=== PATIENT | female | born 1980 ===

== ENCOUNTER 2024-05-21 13:25 | Inpatient (IN) | payer OTHER ==
[2024-05-21] MEDS: ELECTROLYTE-148 SOLN 1,000 ML IV SCH (13:45)
[2024-05-21] MEDS: AMPICILLIN - 2 GM in SODIUM CHLORIDE 100 ML IVPB ONE (13:50)
[2024-05-21] MEDS ORDERED: OXYTOCIN 20 UNITS in 0.9% NS 20 UNIT/1,000 ML INFUS.BAG IV ONE ×2 (14:43→17:00)
[2024-05-21 14:53] VITALS: BMI 40.6
[2024-05-21] MEDS: OXYTOCIN 20 UNITS in 0.9% NS 20 UNIT/1,000 ML INFUS.BAG IV SCH (15:30)
[2024-05-21] MEDS ORDERED: oxyCODONE HCL 5 MG TABLET ONE (15:33)
[2024-05-21] MEDS: oxyCODONE HCL 5 MG TABLET PO PRN (15:35)
[2024-05-21 15:39] LABS: BASO % 0.6 % (0-2.0); HEMOGLOBIN 12.4 GM/dL (10.7-15.3); LYMPH % 9.2 % (8-40); MCH 22.6 pg (25.7-33.7); MCHC 30.9 g/dl (32.0-36.0); MEAN CELL VOLUME 73.2 fl (80-96); MEAN PLT VOLUME 8.3 fl (7.5-11.1); MONO % 7.4 % (3.8-10.2); NEUT % 82.8 % (42.8-82.8); PLATELET COUNT 245 10^3/uL (134-434); RBC 5.47 M/mm3 (3.60-5.2); RDW 18.6 % (11.6-15.6)
[2024-05-21 15:44] LABS: INR 0.95 (0.83-1.09); PROTHROMBIN TIME (PATIENT) 10.7 SEC (9.7-13.0)
[2024-05-21 15:47] LABS: ACTIVATED PTT 28.4 SECONDS (25.2-36.5)
[2024-05-21 15:53] LABS: POTASSIUM 4.4 mmol/L (3.5-5.1)
[2024-05-21] MEDS ORDERED: BISACODYL 10 MG SUPP.RECT RC PRN (15:53)
[2024-05-21] MEDS ORDERED: BENZOCAINE 28 GM HEMORRHOIDAL OINTMENT TP PRN (15:53)
[2024-05-21] MEDS ORDERED: METHYLERGONOVINE MALEATE 0.2 MG/1 ML AMP IM PRN (15:53)
[2024-05-21] MEDS ORDERED: WITCH HAZEL 50% (TUCKS) 40 PAD/JAR PAD TP PRN (15:53)
[2024-05-21] MEDS ORDERED: ACETAMINOPHEN 325 MG TABLET (FP) PO PRN (15:53)
[2024-05-21 15:54] LABS: CALCIUM 9.4 mg/dL (8.5-10.1)
[2024-05-21 15:55] LABS: BLOOD UREA NITROGEN 6.5 mg/dL (7-18)
[2024-05-21 15:58] LABS: CREATININE 0.8 mg/dL (0.55-1.3)
[2024-05-21 17:36] LABS: HIV INTERPRETATION NEGATIVE (NEGATIVE)
[2024-05-21 18:04] VITALS: RESP 18
[2024-05-21] MEDS ORDERED: AMPICILLIN - 2 GM in SODIUM CHLORIDE 100 ML IVPB ONE (18:15)
[2024-05-22] MEDS: IBUPROFEN 600 MG TABLET (FP) PO PRN (05:56)
[2024-05-22] MEDS: BENZOCAINE 20% 57 GM BOTTLE TP PRN (05:58)
[2024-05-22 07:39] LABS: BASO % 0.4 % (0-2.0); EOS % 0.1 % (0-4.5); HEMATOCRIT 30.1 % (32.4-45.2); HEMOGLOBIN 9.5 GM/dL (10.7-15.3); LYMPH % 12.6 % (8-40); MCH 22.9 pg (25.7-33.7); MCHC 31.6 g/dl (32.0-36.0); MEAN CELL VOLUME 72.4 fl (80-96); MEAN PLT VOLUME 8.5 fl (7.5-11.1); MONO % 12.1 % (3.8-10.2); NEUT % 74.8 % (42.8-82.8); PLATELET COUNT 232 10^3/uL (134-434); RBC 4.16 M/mm3 (3.60-5.2); RDW 18.2 % (11.6-15.6); WHITE BLOOD COUNT 14.7 K/mm3 (4.0-10.0)
[2024-05-22] MEDS: PRENATAL VITAMINS W/ FOLIC ACID TABLET (FP) PO SCH (09:29)
[2024-05-22] MEDS: FERROUS SO4 325 MG TABLET (FP) PO SCH (09:29)
[2024-05-22] MEDS: SENNOSIDES/DOCUSATE COMBO (SENNA PLUS) TABLET (UD) PO PRN (22:39)
[2024-05-23 12:06] VITALS: BP 122/84; PULSE 94; TEMP 98.5
== END 2024-05-23 16:40 | disposition home or self-care (01) | DRG 776 ==
LOC: JLDR 13:25 → J3W 18:00
PROVIDERS: ADMIT Obstetrics & Gynecology; ATTEND Obstetrics & Gynecology
PROC: 0HQ9XZZ Repair Perineum Skin, External Approach (ICD-10-PCS; principal; 2024-05-21)
PROC: 0W8NXZZ Division of Female Perineum, External Approach (ICD-10-PCS; 2024-05-21)
DX: O70.0 First degree perineal laceration during delivery (principal); Z3A.38 38 weeks gestation of pregnancy; Z37.0 Single live birth
CPT/HCPCS: 36415; 59409; 80048; 85025; 85610; 85730; 86780; 86803; 87389